=== PATIENT | male | born 1960 | race Caucasian/White ===

== ENCOUNTER 2017-04-07 08:55 | Inpatient (IN) | payer OTHER ==
[2017-04-07] VITALS (11 sets, daily range): BP systolic 105–128; BP diastolic 63–77; PULSE 58–84; RESP 16–18; O2SAT 95–99
[~2017-04-07] VITALS: Ht 180.3 cm; Wt 100.3 kg
[~2017-04-07 08:55] MED LIST: Lactated Ringer's 1,000 ML IV ONE
[2017-04-07] MEDS ORDERED: Lactated Ringer's 500 ML IV PRN (10:02)
[2017-04-07] MEDS ORDERED: Lactated Ringer's 1,000 ML IV SCH (10:02)
[2017-04-07] MEDS ORDERED: MetoCLOpramide 5 mg/mL 2 mL Inj IVPUSH PRN (10:05)
[2017-04-07] MEDS ORDERED: Atropine 0.4 mg/mL Inj IVPUSH PRN (10:05)
--- NOTE | 2017-04-07 10:06 | PCM.HPANE ---
Patient Data Date of Service: Apr 07, 2017 Surgeon Admitting Provider: Attending Provider:Samuel Rosenberg MD Primary Care Physician:Donta Santiago DO Other Provider:Viet Valle Anesthesia Reason for Visit Colon Cancer Screening Ht/WT & BMI Height (Feet): 5 Height (Inches): 11 Weight (Kilograms): 113 Body Mass Index 34.00 Allergies Coded Allergies: No Known Allergies (Verified Allergy, Unknown, 04/06/17) Past Anesthesia History Anesthesia History: Denies:: Anesthesia Reactions, Fam Malignant Hypertherm Diabetes History Hx Diabetes?: No MRSA MRSA: No Medications Hypertension Medication: No Home Meds Incl Beta Mayela: No History History of ENT Problems?: No HEENT History: Denies:: Abnormal Airway Difficult Intubation Denture Type: None Teeth Condition: Broken Teeth Hx of Heart Problems?: No Cardiovascular History: Denies:: Chest Pain Hypertension Valvular Heart Disease Hx of Respiratory Problem?: Yes Respiratory History: Positive for:: COPD Other Resp Pertinent History: SMOKE DAILY Hx Neurologic Problems?: No Neurological History: Denies:: CVA Hx of GI Problems?: Yes Gastrointestinal History: Positive for:: Gastroesphageal Reflux Heartburn Hx of Problems?: No HX of Peritoneal Dialysis: No Hx Musculoskeletal Problems?: No Hx of Psycho/Social Problems?: Yes Psycho Social History: Positive for:: Anxiety Hx Depression Hx Surgeries?: Yes (APPY) Other History/Comment Alcohol use Hx Any Other Health Problems?: No Hx Alcohol Use: Yes (DAILY )Hx Substance Use: Yes Smoking Status: Current Every Day Smoker Stop/Bang Treated for Sleep Apnea?: No Do You Have a CPAP Machine?: No S-Snoring: Do You Snore Loudly: Yes T-Tired: feel tired, fatigued: No O-Obsered: Observed not breath: No P-Blood Pressure: treated: No B- Body Mass Index > 35 kg/m2: No A- Age over 50: Yes N- Neck Large Circumference: No G- Gender Male: Yes OSCAR Total Score: 3 Risk Assessment Category Category 1A: Patient has history of documented sleep apnea, and HAS NOT received any narcotic, sedative or anesthesia administration during this stay. Category 1B: Patient has history of documented sleep apnea, and HAS received any narcotic , sedative or anesthesia administration during this stay Category 2: Patient has SUSPECTED Obstructive Sleep Apnea, and HAS received any narcotic , sedative or anesthesia administration during this stay. Category 3: Patient has SUSPECTED Obstructive Sleep Apnea and HAS NOT received narcotic, sedative or anesthesia administration during this stay. Category 4: Outpatient in Procedural Areas with known sleep apnea or who screen positive for High Risk via the STOP/BANG questionnaire. Exam Exam Vital Signs Vital Signs Date Time Temp Pulse Resp B/P Pulse Ox O2 Delivery O2 Flow Rate FiO2 04/07/17 09:55 36.2 60 17 115/75 97 Room Air General Appearance: Alert, Oriented X3, Cooperative HEENT/AIRWAY: MP 3, Neck Movement (Full), Mouth Opening (Wide) Lungs: Clear to Auscultation, Normal Air Movement Heart: Regular Rate/Rhythm, Normal S1, Normal S2 Plan Impression Patient chart reviewed, patient interviewed and anesthestic plan with risks, benefits, and alternatives discussed, and informed consent obtained. NPO per Anesth. Guidelines: Yes ASA Physical Status: ASA2 Mod Systemic Disease Anesthetic Plan: MAC Bene/Risks/Altern/Consents: Yes HP Complete Prior to Induction: Yes Sid Haley MD Apr 07, 2017 10:06
[2017-04-07] MEDS ORDERED: Piperacillin-Tazo 3.375 Gm Inj 3.375 GM in Dextrose 5% Minibag Plus 50 ML IV STA (10:35)
[2017-04-07] MEDS ORDERED: fentaNYL-PF 50 mCg/mL 2 mL Inj ONE (10:36)
[2017-04-07] MEDS: fentaNYL-PF 50 mCg/mL 2 mL Inj IVPUSH PRN ×2 (10:42→10:54)
--- NOTE | 2017-04-07 11:39 | PCM.ANEP1 ---
Post Anesthesia PACU Phase 1 Assessment Vital Signs Vital Signs Date Time Temp Pulse Resp B/P Pulse Ox O2 Delivery O2 Flow Rate FiO2 04/07/17 11:24 63 16 106/66 96 Room Air 04/07/17 11:14 68 16 106/66 99 Room Air 04/07/17 11:04 72 17 105/68 98 Room Air 04/07/17 10:53 66 16 118/70 99 Room Air 04/07/17 10:36 64 16 128/77 96 Room Air 04/07/17 09:55 36.2 60 17 115/75 97 Room Air Anesthetic Administered: GA Level of Alertness: Awake, talking OBANDO's with Equal Strength: Yes Pain: Yes (concern for perforation) Nausea or Vomiting: No CV Function & Hydration Stable: Yes Airway Device: Oxygen Delivery: Nasal Cannula Lungs: Normal Air Movement PACU Phase 2 Assessment Complications: Yes (perforation seen on CT scan) Follow up Care: N/A Patient Instructions Provided: N/A Sid Haley MD Apr 07, 2017 11:39
[2017-04-07] MEDS ORDERED: Lactated Ringer's 1,000 ML IV ONE (11:41)
[2017-04-07] MEDS ORDERED: Propofol 10,000 mCg/mL 20 mL Inj ONE (12:12)
--- NOTE | 2017-04-07 12:14 | ENDO ---
[address] [address] ENDOSCOPY PROCEDURE PATIENT: RUFUS HINDS : 1960 MR#: [id number] ADMIT: 04/07/2017 JOB ID: [id number] DATE: 04/07/2017 PROCEDURE: Colonoscopy. INDICATION: Colon cancer screening. ANESTHESIA: The patient's ASA classification, Mallampati score, and medications as per anesthesia note. INSTRUMENT USED: PCF H 190 DL. PREPARATION QUALITY: Good. PROCEDURE DETAILS: After informed consent was obtained, the patient was brought into the GI suite, where he was placed on oxygen via nasal cannula and monitored with continuous pulse oximeter, telemetry, and blood pressure monitoring. A time-out was performed, then he was placed in the left lateral decubitus position and medications were administered for sedation. Digital rectal exam was performed which was unremarkable. The colonoscope was then inserted into the rectum and advanced under direct visualization to the cecum. Once the cecum was reached, the colonoscope was then withdrawn back. In the ascending colon, just distal to the ileocecal valve, was an approximately 8-9 mm flat polyp. The polyp was lifted using normal saline injection. Following that, the polyp was removed with a hot snare. Following removal with a hot snare there appeared to be a mucosal defect suggestive of a perforation. Three hemoclips were placed to approximate the mucosal defect, which measured approximately 4-5 mm. Air was suctioned. The polyp was retrieved. The colonoscope was quickly withdrawn. IMPRESSION: 1. Ascending colon polyp. Perforation following polyp removal. Three hemoclips were placed to approximate the perforation. Will plan for a STAT CT scan of the abdomen and pelvis. 2. STAT IV antibiotics. 3. STAT surgical consultation. 4. N.p.o. COMPLICATIONS: As mentioned above. ESTIMATED BLOOD LOSS: Zero.
--- NOTE | 2017-04-07 12:25 | NUR ---
Post op Pt to unit at 1155 from Endo able to slide self off gurney into bed. Pt has 2L NC, A&O x 3, OBANDO, VSS. Pt having pain /. Oriented to room and call light, bed in low, care continues.
--- NOTE | 2017-04-07 12:30 | DRSVH ---
PROCEDURE: CT ABDOMEN AND PELVIS WITHOUT CONTRAST ([id number]) INDICATIONS: Possible perforation TECHNIQUE: Noncontrast 5 mm thick sections acquired from the diaphragms to the symphysis. 5 mm coronal and sagi ttal reformats were then performed. For radiation dose reduction, the following was used: automated exposure control, adjustment of mA and/or kV according to patient size. COMPARISON: Jose Zarate, MR, MR LUMBAR SPINE WO CON, 02/18/2017, 9:08. FINDINGS: Image quality: Excellent. ABDOMEN: Lung bases: Lung bases are clear. Heart size is normal. Solid organs: There is a 1.2 cm indeterminate hepatic hypodensity. Liver and spleen are normal in si ze. Gallbladder is normal. Pancreas is normal in contours. No adrenal nodules. Kidneys are normal in size, without hydronephrosis or nephrolithiasis. Peritoneum and bowel: There is a large amount of free peritoneal air consistent with viscus perforat ion. There is a small amount of air/fluid adjacent to the hepatic flexure, most likely the site of pe rforation. There are 2 metallic clips are noted along the lateral wall of the ascending colon. Unenha nced bowel loops demonstrate normal wall thickness and caliber. No free fluid. Nodes and vessels: No retroperitoneal or mesenteric adenopathy by size criteria. Aorta and inferior vena cava are normal in caliber. Miscellaneous: No ventral hernias. PELVIS: Genitourinary: Bladder wall thickness is normal. Miscellaneous: No inguinal hernias or adenopathy. Bones: No suspicious bony lesions. No vertebral body compression fractures. IMPRESSION: 1. A large amount of free peritoneal air consistent with viscus perforation. The site of perforation is in the area of the hepatic flexure or asceding colon. 2. Two surgical clips along the lateral wall of the ascending colon. 3. A 1.2 cm indeterminate hepatic hypodensity, probably a cyst. The result was discussed with Dr. Chet zuniga to dictation. Dictated by: Harriet Brunson M.D. on 04/07/2017 at 12:20 Transcribed by: JITENDRA on 04/07/2017 at 12:31 Approved by: Harriet Brunson M.D. on 04/07/2017 at 17:17
--- NOTE | 2017-04-07 13:36 | PCM.HPMED ---
Subjective Date of Service Apr 07, 2017 Primary Provider: Admitting Physician: Primary Care Physician: Donta Santiago DO Attending Physician: Samuel Rosenberg MD Chief Complaint: perforated colon from colonoscopy History of Present Illness: 56-year-old male with no significant past medical history, chronic etoh abuse, no hx of withdrawal, Fhx of colon cancer presented to endoscopy clinic for elective colonoscopy for screening by . During the procedure, bowel was perforated following polyp removal. Patient was started on zosyn, IVF, kept in NPO. Surgical consult on board. CT abd showed A large amount of free peritoneal air consistent with viscus perforation. The site of perforation is in the area of the hepatic flexure of colon where there is a small air/fluid collection. upon interview, pt c/o coldness, chills, abdominal pain 5/10, diffusely, denied n/v. otherwise pt denied recent F,c, cough, sputum, chest pain, sputum, travel, sick contacts, complaints. functional and active Review of Systems: Pertinent positives as noted in history of present illness. All other systems were reviewed and are negative Allergies Coded Allergies: No Known Allergies (Verified Allergy, Unknown, 04/06/17) Home Medications None PMH Surgical History Perforated appendicitis Family History Mother and aunt had colon cancer Social History Hx Alcohol Use: Yes (DAILY ) Hx Substance Use: Yes Smoking Status: Current Every Day Smoker Additional Information Lives with and daughter Exam Vital Signs Vital Sign - Last Date Time Temp Pulse Resp B/P Pulse Ox O2 Delivery O2 Flow Rate FiO2 04/07/17 11:39 Nasal Cannula 04/07/17 11:34 62 16 107/71 96 04/07/17 09:55 36.2 Exam NAD, comfortably laying down on the bed no JVD, MMM, no LAD RRR, nl s1, s2 no mrg CTAB, no w,c S, moderately distended, diffuse tenderness throughout, hypoactive bowel sounds , no rTD, no guarding warm, no edema, pulses 2/2 Lab and Diagnostics X-Rays, CTs and MRIs Caution: Report not yet finalized and possibly incomplete! PROCEDURE: CT ABDOMEN AND PELVIS WITHOUT CONTRAST ([id number]) INDICATIONS: Possible perforation TECHNIQUE: Noncontrast 5 mm thick sections acquired from the diaphragms to the symphysis. 5 mm coronal and sagittal reformats were then performed. For radiation dose reduction, the following was used: automated exposure control, adjustment of mA and/or kV according to patient size. COMPARISON: MR Faustino, MR LUMBAR SPINE WO CON, 02/18/2017, 9:08. FINDINGS: Image quality: Excellent. ABDOMEN: Lung bases: Lung bases are clear. Heart size is normal. Solid organs: There is a 1.2 cm indeterminate hepatic hypodensity. Liver and spleen are normal in size. Gallbladder is normal. Pancreas is normal in contours. No adrenal nodules. Kidneys are normal in size, without hydronephrosis or nephrolithiasis. Peritoneum and bowel: There is a large amount of free peritoneal air consistent with viscus perforation. There is a small amount of air/fluid adjacent to the hepatic flexure, most likely the site of perforation. There are 2 metallic clips are noted along the lateral wall of the ascending colon. Unenhanced bowel loops demonstrate normal wall thickness and caliber. No free fluid. Nodes and vessels: No retroperitoneal or mesenteric adenopathy by size criteria. Aorta and inferior vena cava are normal in caliber. Miscellaneous: No ventral hernias. PELVIS: Genitourinary: Bladder wall thickness is normal. Miscellaneous: No inguinal hernias or adenopathy. Bones: No suspicious bony lesions. No vertebral body compression fractures. IMPRESSION: 1. A large amount of free peritoneal air consistent with viscus perforation. The site of perforation is in the area of the hepatic flexure of colon where there is a small air/fluid collection. 2. Two surgical clips along the lateral wall of the ascending colon. The result was discussed with Dr. Chet zuniga to dictation. Dictated by: Harriet Brunson M.D. on 04/07/2017 at 12:20 Transcribed by: JITENDRA on 04/07/2017 at 12:31 Assessment & Plan Acute, active perforated colon, POA, during colonoscopy, CT abd showed large free air. HD stable, -appreciate , recommendation, keep NPO for now, -continue IVF NS 100cc/hr -pain control for dilaudid prn, -zofran prn for n/v -continue zosyn empirically for peritonitis, trend labs, fever curve chronic, stable, etoh abuse, potential for etoh WD, monitor for now dispo:Patient will be admitted with inpatient status with expectation of inpatient therapy for more than 2 midnights diet: Nothing by mouth dvt ppx: SCD Full code Time spent 65min Kermit Wilson MD Apr 07, 2017 12:06
[2017-04-07] MEDS: 0.9% Sodium Chloride 1,000 ML IV SCH (13:44)
[2017-04-07] MEDS: HYDROmorphone 1 mg/mL Inj IVPUSH PRN ×4 (13:44→22:40)
[2017-04-07 13:56] LABS: BASOPHILS % (AUTO) 0.1 % (0-3); EOSINOPHILS % (AUTO) 0.7 % (0-5); MONOCYTES % (AUTO) 5.4 % (4-12); Mean Corpuscular Hemoglobin 30.1 pg (27.0-35.0); Mean Corpuscular Volume 90.4 fL (81-100); Platelet Count 258 bil/L (150-400)
[2017-04-07] MEDS: Ondansetron 2 mg/mL 2 mL Inj IVPUSH PRN (14:05)
[2017-04-07 14:21] LABS: Magnesium 1.9 mg/dL (1.6-2.6); Phosphorus 3.8 mg/dL (2.5-4.9)
--- NOTE | 2017-04-07 16:20 | CONS ---
[address] [address] CONSULTATION REPORT PATIENT: RUFUS HINDS : 1960 MR#: [id number] ADMIT: 04/07/2017 JOB ID: [id number] DATE OF SERVICE: 04/07/2017 CHIEF COMPLAINT: Abdominal pain. HISTORY OF PRESENT ILLNESS: The patient is a 56-year-old man who underwent a screening colonoscopy today which was complicated by a colon perforation. Again, colonoscopy was being performed for screening purposes. Dr. Rosenberg encountered an 8-9 mm flat polyp in the ascending colon, which was removed by hot snare after lifting the polyp with saline injection, and immediately perforation was identified. Clips were placed to reapproximate the defect and the scope was quickly withdrawn after air was suctioned. A stat CT scan of the abdomen and pelvis was obtained which showed findings consistent with colon perforation, including a large amount of free intraperitoneal air and a small amount of free fluid adjacent to the hepatic flexure. There were two metallic clips located along the lateral wall of the ascending colon. At the time of interviewing the patient this afternoon, he was complaining of fairly severe ongoing abdominal pain. He has had nausea but no vomiting. PAST MEDICAL HISTORY: Alcohol abuse without history of withdrawal. PAST SURGICAL HISTORY: Appendicitis, status post laparoscopic appendectomy. MEDICATIONS: None. ALLERGIES: No known drug allergies. SOCIAL HISTORY: He drinks alcohol daily. He also admits to daily marijuana use for 40 years. He smokes cigarettes. FAMILY HISTORY: Both a mother and an aunt had colon cancer. REVIEW OF SYSTEMS: A 10-point review of systems is otherwise negative except as described in history of present illness. Specifically, he denies blood in the stool. PHYSICAL EXAMINATION: Body mass index 30.8, temperature 36.4, pulse 64, blood pressure 110/70, saturation 97% on 2 liters nasal cannula. General: He is resting in bed in no acute distress. Neck: Trachea is midline. No lymphadenopathy. Chest: Clear to auscultation bilaterally. Heart: Regular rate and rhythm. No murmurs. Abdomen: Fairly firm and distended. He is diffusely tender. There is no erythema of the abdominal wall. There is a well-healed scar at the umbilicus as well as in the left lower abdomen. There are no palpable masses. Extremities: No edema. Neuro: No deficits. Psychiatric: Affect is appropriate. LABORATORIES: White count is 14.4, hematocrit 44.2, platelets 258, creatinine 1.09, glucose 88, procalcitonin 0.05, albumin 4.2. ASSESSMENT AND PLAN: A 56-year-old man with alcohol and marijuana abuse, status post iatrogenic perforation of the ascending colon during colonoscopy with polypectomy. He does have free air and a fairly firm, tender abdomen at this time. For now, I recommend conservative management including nothing by mouth, IV fluids, broad-spectrum IV antibiotics. The patient understands that more than likely, he will not require surgical intervention, but we will tend to have a good idea within the 1st 24 hours. If he is going to fail conservative management or not. Specifically, we will be looking for tachycardia, fevers, worsening abdominal pain, rising leukocytosis. All his questions were answered.
[2017-04-07] MEDS: Piperacillin-Tazo 3.375 Gm Inj 3.375 GM in Dextrose 5% Minibag Plus 50 ML IV SCH (17:34)
[2017-04-08] VITALS (7 sets, daily range): BP systolic 95–105; BP diastolic 57–63; PULSE 63–81; RESP 18–20; O2SAT 92–94
[2017-04-08] MEDS: Piperacillin-Tazo 3.375 Gm Inj 3.375 GM in Dextrose 5% Minibag Plus 50 ML IV SCH ×3 (00:46→16:44)
[2017-04-08] MEDS: 0.9% Sodium Chloride 1,000 ML IV SCH ×3 (05:32→21:22)
[2017-04-08] MEDS: HYDROmorphone 1 mg/mL Inj IVPUSH PRN ×4 (05:41→18:38)
--- NOTE | 2017-04-08 05:56 | NUR ---
Pain Pt reports pain as being much better. Used IV pain management and patient was counseled on how much pain medication to use. Pt requested full 2mg IV Dilaudid dose to be able to sleep. Will pass on to day shift to wean pain medication down.
[2017-04-08 06:25] LABS: BASOPHILS % (AUTO) 0.1 % (0-3); EOSINOPHILS % (AUTO) 0.5 % (0-5); MONOCYTES % (AUTO) 8.5 % (4-12); Mean Corpuscular Hemoglobin 29.8 pg (27.0-35.0); Mean Corpuscular Volume 91.5 fL (81-100); NEUTROPHILS % (AUTO) 74.2 % (40-74); Platelet Count 248 bil/L (150-400)
[2017-04-08 06:44] LABS: Phosphorus 3.4 mg/dL (2.5-4.9)
--- NOTE | 2017-04-08 08:05 | PROG NOTE ---
[address] [address] PROGRESS NOTE PATIENT: RUFUS HINDS : 1960 MR#: [id number] ADMIT: 04/07/2017 JOB ID: [id number] DATE: 04/08/2017 SUBJECTIVE: The patient is seen in followup. He feels significantly better today. He still does have some mild nausea. He has not passed any flatus. His pain is much better controlled. OBJECTIVE: Temperature is 36.9, pulse 74, blood pressure 95/58, saturation 94% on 3 liters. General: He is resting in bed in no acute distress. Chest is clear. Heart: Regular rate and rhythm. No murmurs. Abdomen is much less distended. He is soft. He has mild tenderness to palpation. Bowel tones are present. LABORATORIES: White count is 11.6, hematocrit 39.6, platelets 248, creatinine 1.05, procalcitonin 0.49. ASSESSMENT AND PLAN: A 56-year-old man with iatrogenic right colon perforation during colonoscopy. I think he is improving with conservative management, but would continue for today and do not recommend discharge yet. I think giving him a clear liquid diet today in a limited fashion is fine. Would continue antibiotics and recheck labs tomorrow. It seems unlikely that he will require surgical intervention.
--- NOTE | 2017-04-08 09:47 | PCM.PNMED ---
Subjective Date of Service Apr 08, 2017 Subjective abdominal pain better still requiring IV narcotics no flatus or bowel movement started clears this AM per surgery , tolerating clears Exam Vital Signs Vital Sign - Last Date Time Temp Pulse Resp B/P Pulse Ox O2 Delivery O2 Flow Rate FiO2 04/08/17 05:33 74 04/08/17 05:08 36.9 20 95/58 94 Nasal Cannula 3.00 Intake and Output 04/07/17 04/07/17 04/08/17 Cumulative From/Thru 15:00 23:00 07:00 04/07/17 09:59 - 04/08/17 06:09 Intake Total 300 ml 0 ml 1175 ml 1475 ml Output Total 450 ml 450 ml 900 ml Balance 300 ml -450 ml 725 ml 575 ml Intake Oral 0 ml 0 ml 0 ml IV Total 300 ml 1175 ml 1475 ml Output Urine Total 450 ml 450 ml 900 ml # Bowel Movements 0 0 Exam Gen- no apparent distress HEENT- oropharynx clear RESP- clear to auscultation bilaterally CVS-RRR Abdomen- Tender in RUQ and RLQ, distended but soft, hypoactive bowel sounds EXT- no edema Lab and Diagnostics Result Diagram: 04/08/17 0520 04/08/17 0520 X-Rays, CTs and MRIs Caution: Report not yet finalized and possibly incomplete! PROCEDURE: CT ABDOMEN AND PELVIS WITHOUT CONTRAST ([id number]) INDICATIONS: Possible perforation TECHNIQUE: Noncontrast 5 mm thick sections acquired from the diaphragms to the symphysis. 5 mm coronal and sagittal reformats were then performed. For radiation dose reduction, the following was used: automated exposure control, adjustment of mA and/or kV according to patient size. COMPARISON: MR Faustino, MR LUMBAR SPINE WO CON, 02/18/2017, 9:08. FINDINGS: Image quality: Excellent. ABDOMEN: Lung bases: Lung bases are clear. Heart size is normal. Solid organs: There is a 1.2 cm indeterminate hepatic hypodensity. Liver and spleen are normal in size. Gallbladder is normal. Pancreas is normal in contours. No adrenal nodules. Kidneys are normal in size, without hydronephrosis or nephrolithiasis. Peritoneum and bowel: There is a large amount of free peritoneal air consistent with viscus perforation. There is a small amount of air/fluid adjacent to the hepatic flexure, most likely the site of perforation. There are 2 metallic clips are noted along the lateral wall of the ascending colon. Unenhanced bowel loops demonstrate normal wall thickness and caliber. No free fluid. Nodes and vessels: No retroperitoneal or mesenteric adenopathy by size criteria. Aorta and inferior vena cava are normal in caliber. Miscellaneous: No ventral hernias. PELVIS: Genitourinary: Bladder wall thickness is normal. Miscellaneous: No inguinal hernias or adenopathy. Bones: No suspicious bony lesions. No vertebral body compression fractures. IMPRESSION: 1. A large amount of free peritoneal air consistent with viscus perforation. The site of perforation is in the area of the hepatic flexure of colon where there is a small air/fluid collection. 2. Two surgical clips along the lateral wall of the ascending colon. The result was discussed with Dr. Chet zuniga to dictation. Dictated by: Harriet Brunson M.D. on 04/07/2017 at 12:20 Transcribed by: JITENDRA on 04/07/2017 at 12:31 Assessment & Plan Iatrogenic colon perforation -continue IV antibiotics -diet as per surgery -follow CBC -KUB today Dr Cristina will be covering the service over the weekend, I will return on Tuesday. VTE Mechanical Devices: Intermittant Pneumatic CD Samuel Rosenberg MD Apr 08, 2017 09:46
--- NOTE | 2017-04-08 11:24 | PATH ---
SURGICAL PATHOLOGY Attending Physician:Altagracia Rodriguez CASE STATUS: Signed Out PATIENT NAME: RUFUS HINDS PID: [id number] : 1960 DATE COLLECTED:04/07/2017 16:58 SPECIMEN: Colon, Polyp CLINICAL HISTORY: 1. ASCENDING COLON POLYP FINAL DIAGNOSIS: 1.ASCENDING COLON POLYP: SERRATED ADENOMA WITH PROMINENT SUBMUCOSAL EDEMA. ICD10 D12.2 GROSS DESCRIPTION: The specimen is received in one formalin filled container labeled with the patient's name, sublabeled "ascending polyp" and consists of a yellow-fields portion of tissue which measurers 1.7 x 1.2 x 1.0 CM. The specimen is sectioned into 4 pieces and entirely submitted in one cassette. 04/07/2017 [facility] MICRO DESCRIPTION: See diagnosis. ICD-9 CODES: CPT CODES: 1: 29708 Electronically Signed Out Pawan Ferrell MD [facility] [address], [place] [address] Technical component performed at [facility], [facility] [address], [place], [address]
--- NOTE | 2017-04-08 11:43 | DRSVH ---
PROCEDURE: X-RAY KUB ([id number]) INDICATIONS: colon perforation TECHNIQUE: One view of the abdomen acquired. COMPARISON: [facility], CT, CT ABD PELVIS WO CON, 04/07/2017, 10:24. FINDINGS: Surgical changes and devices: None. Bowel: Bowel gas pattern is normal. Soft tissues: No suspicious abdominal calcifications. Visualized solid organ contours appear normal in size. 3 metallic surgical clips projected over the right lower quadrant. Bones: No suspicious bony lesions. IMPRESSION: 1. Normal bowel gas pattern. Free intraperitoneal gas cannot be excluded by this examination as no u pright was performed nor a decubitus film. Dictated by: Rj SHARPE Interpreted: Jacek Arango MD on 04/08/2017 at 11:19 Approved by: Jacek Arango M.D. on 04/08/2017 at 11:41
--- NOTE | 2017-04-08 12:29 | PCM.PNMED ---
Subjective Date of Service Apr 08, 2017 Subjective pt remained stable, bowel soft, no n/v Exam Vital Signs Vital Sign - Last Date Time Temp Pulse Resp B/P Pulse Ox O2 Delivery O2 Flow Rate FiO2 04/08/17 12:17 36.7 70 18 100/63 94 Room Air 04/08/17 05:08 3.00 Intake and Output 04/07/17 04/07/17 04/08/17 Cumulative From/Thru 15:00 23:00 07:00 04/07/17 09:59 - 04/08/17 06:09 Intake Total 300 ml 0 ml 1175 ml 1475 ml Output Total 450 ml 450 ml 900 ml Balance 300 ml -450 ml 725 ml 575 ml Intake Oral 0 ml 0 ml 0 ml IV Total 300 ml 1175 ml 1475 ml Output Urine Total 450 ml 450 ml 900 ml # Bowel Movements 0 0 Exam NAD, comfortably laying down on the bed no JVD, MMM, no LAD RRR, nl s1, s2 no mrg CTAB, no w,c S, moderately distended, diffuse tenderness throughout, hypoactive bowel sounds , no rTD, no guarding warm, no edema, pulses 2/2 IVs and Medications Medications Reviewed: Medications were reviewed in detail Lab and Diagnostics Result Diagram: 04/08/1751904/08/17519 X-Rays, CTs and MRIs Caution: Report not yet finalized and possibly incomplete! PROCEDURE: CT ABDOMEN AND PELVIS WITHOUT CONTRAST (PNL-7104) INDICATIONS: Possible perforation TECHNIQUE: Noncontrast 5 mm thick sections acquired from the diaphragms to the symphysis. 5 mm coronal and sagittal reformats were then performed. For radiation dose reduction, the following was used: automated exposure control, adjustment of mA and/or kV according to patient size. COMPARISON: Jose Zarate, MR, MR LUMBAR SPINE WO CON, 02/18/2017, 9:08. FINDINGS: Image quality: Excellent. ABDOMEN: Lung bases: Lung bases are clear. Heart size is normal. Solid organs: There is a 1.2 cm indeterminate hepatic hypodensity. Liver and spleen are normal in size. Gallbladder is normal. Pancreas is normal in contours. No adrenal nodules. Kidneys are normal in size, without hydronephrosis or nephrolithiasis. Peritoneum and bowel: There is a large amount of free peritoneal air consistent with viscus perforation. There is a small amount of air/fluid adjacent to the hepatic flexure, most likely the site of perforation. There are 2 metallic clips are noted along the lateral wall of the ascending colon. Unenhanced bowel loops demonstrate normal wall thickness and caliber. No free fluid. Nodes and vessels: No retroperitoneal or mesenteric adenopathy by size criteria. Aorta and inferior vena cava are normal in caliber. Miscellaneous: No ventral hernias. PELVIS: Genitourinary: Bladder wall thickness is normal. Miscellaneous: No inguinal hernias or adenopathy. Bones: No suspicious bony lesions. No vertebral body compression fractures. IMPRESSION: 1. A large amount of free peritoneal air consistent with viscus perforation. The site of perforation is in the area of the hepatic flexure of colon where there is a small air/fluid collection. 2. Two surgical clips along the lateral wall of the ascending colon. The result was discussed with Dr. Chet zuniga to dictation. Dictated by: Harriet Brunson M.D. on 04/07/2017 at 12:20 Transcribed by: JITENDRA on 04/07/2017 at 12:31 Assessment & Plan Acute, active perforated colon, POA, iatrogenic during colonoscopy, CT abd showed large free air. HD stable, -pt clinically stable with conservative tx, no s/s of peritonitis -appreciate , recommendation, keep NPO for now, -continue IVF NS 100cc/hr -pain control for dilaudid prn, -zofran prn for n/v -continue zosyn empirically for peritonitis, trend labs, fever curve chronic, stable, etoh abuse, potential for etoh WD, no s/s of WD yet, CIWA protocl ordered, dispo:likely through the weekends, close observation diet: Nothing by mouth dvt ppx: SCD Full code VTE Mechanical Devices: Intermittant Pneumatic CD Time spent 35min Kermit Wilson MD Apr 08, 2017 12:25
--- NOTE | 2017-04-08 17:43 | NUR ---
Activity Pt having intermittent gassy pain during shift, well controlled with IV medications. Able to get up to BR now and independently walking in room. Bowel sounds normal today, but did have increasing abdominal firmerness over shift, still has not passed gas. Pt eating clear diet and is going slow since he had mild nausea after eating. Pt states he drink 4-6 beers a night, CIWA protocol in place, scored 0-3 during shift. Bed in low, call light in reach, care continues. Addendum: 04/08/17 at 1924 by RADHA MARMOLEJO RN Went into room at 1800 and pt was using chewing tobacco. Advised that this was against our policy and he stated that it was all gone and he threw it away. production intern RN aware.
[2017-04-09] VITALS (9 sets, daily range): BP systolic 95–111; BP diastolic 55–74; PULSE 59–73; RESP 16–18; O2SAT 91–96
[2017-04-09] MEDS: HYDROmorphone 1 mg/mL Inj IVPUSH PRN ×5 (00:51→22:42)
[2017-04-09] MEDS: Piperacillin-Tazo 3.375 Gm Inj 3.375 GM in Dextrose 5% Minibag Plus 50 ML IV SCH ×3 (00:52→16:32)
[2017-04-09] MEDS: 0.9% Sodium Chloride 1,000 ML IV SCH ×2 (05:40→12:21)
--- NOTE | 2017-04-09 06:29 | NUR ---
Rest/Pain/Respiratory Pt was able to sleep through most of the shift. Pt c/o pain prior to the pain reaching level he could not handle and was given pain relief with 2mg Dilaudid IVP. Pt was on a continuous pulse ox at HS and began to desat into the high 80s so pt was put on 2L O2 NC and the pt's SpO2 >92% with this amount of supplemental O2.
[2017-04-09 06:31] LABS: BASOPHILS % (AUTO) 0.2 % (0-3); EOSINOPHILS % (AUTO) 1.3 % (0-5); MONOCYTES % (AUTO) 8.4 % (4-12); Mean Corpuscular Hemoglobin 29.8 pg (27.0-35.0); Mean Corpuscular Volume 91.4 fL (81-100); Platelet Count 233 bil/L (150-400)
[2017-04-09 07:19] LABS: Magnesium 1.9 mg/dL (1.6-2.6); Phosphorus 2.8 mg/dL (2.5-4.9)
--- NOTE | 2017-04-09 08:12 | PCM.PNSURG ---
Subjective Date of Service: Apr 09, 2017 Date of Service: Apr 09, 2017 Visit Information: Subjective: no acute events overnight. pt passing flatus. pt reports still mild pain in rt side of abdomen but improved since admission. Pt on clears. Postop General: No Complaints Objective Vital Sign- Last 8 Hours Date Time Temp Pulse Resp B/P Pulse Ox O2 Delivery O2 Flow Rate FiO2 04/09/17 05:59 65 04/09/17 04:37 36.6 68 18 95/55 94 Room Air 04/09/17 00:13 36.7 72 18 111/69 94 Room Air Intake and Output- Last 8 Hour 04/09/17 Cumulative From/Thru 07:00 04/07/17 09:59 - 04/09/17 06:45 Intake Total 200 ml 3566 ml Output Total 450 ml 2250 ml Balance -250 ml 1316 ml Intake Oral 200 ml 1050 ml IV Total 2516 ml Output Urine Total 450 ml 2250 ml # Bowel Movements 0 0 General: Oriented X3 Neck: Supple Lungs: Clear to Auscultation Heart: Exam Unremarkable Abdomen: Benign, Soft, Appropriately tender, Distended, Normoactive bowel tones Result Diagram: 04/09/17 0536 04/09/17 0536 Assessment & Plan Impression 56-year-old man wtih hx appy and daily marijuana use admitted after colonoscopy performed for colorectal cancer screening complicated by a colon perforation s/ p 2 clips placed at ascending colon perf site. s/p CT scan of the abdomen and pelvis no contrast 04/07/17 was obtained which showed findings consistent with colon perforation, large amount free intraperitoneal air near hepatic flexure site. 04/09/17- Pt passing flatus but dry can tender in Rt side abdomen on physical exam. Pt abdomen remains soft yet mildly distended. wbc 9.6 this am. recs: 1) Case discussed with and agree with Dr. Jim from Gen surgery this am. 2) serial abdominal exams 3) cont clears liquid diet for now will cont to follow . Problems: Chapincito Cristina MD Apr 09, 2017 08:12
[2017-04-09] MEDS: Ondansetron 2 mg/mL 2 mL Inj IVPUSH PRN ×2 (09:40→16:47)
--- NOTE | 2017-04-09 11:39 | PROG NOTE ---
[address] [address] PROGRESS NOTE PATIENT: RUFUS HINDS : 1960 MR#: [id number] ADMIT: 04/07/2017 JOB ID: [id number] DATE: 04/09/2017 SUBJECTIVE: This is a 56-year-old man who had in iatrogenic perforation of the right colon two days ago with free air seen on CT scan. His white blood cell count has decreased from 11.6 to 9.6. He has been tolerating a clear liquid diet. He still has pain which he rates as 5/5 on examination. Oral intake was 850 mL. Urine output was 1350 mL. He is on Zosyn. Vitals are normal. Comprehensive metabolic panel is essentially within normal limits. OBJECTIVE: Vital signs are within normal limits. General: Awake and alert, no acute distress. Abdomen: Soft, mildly tender, distended, no rebound or guarding. ASSESSMENT: A 56-year-old man status post iatrogenic perforation of the right colon two days ago. He had a fair amount of free air on his CT scan. 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 He is tolerating clear liquid diet. RECOMMENDATIONS: I recommend continued antibiotics, non advancement of diet, pain control and observation. Although he would like to progress his care and go home, the amount of free air on his CT scan and degree of distention and tenderness leads me to recommend very careful observation as it is possible that his overall clinical status could still worsen at this time.
--- NOTE | 2017-04-09 13:27 | NUR ---
Social Work: Screening D: EMR reviewed. Pt is a 56 y/o male admitted for colon cancer screening per H&P. Pt's insurance is [employer] and PCP is Donta Santiago DO. Pt's NOK is listed as spouse, John Lagos ([phone]). Pt lives at home in [place] with his spouse where he remains independent. Per MD in AM multi-disciplinary rounds, pt is likely to discharge tomorrow. Pt to transport home via POV when medically stable. Per GARY NAIK does not anticipate any discharge needs at this time but will continue to follow if needs arise. A: Pt who is independent at baseline P: Per MD in AM multi-disciplinary rounds, pt is likely to discharge tomorrow. Pt to transport home via POV when medically stable. Per GARY NAIK does not anticipate any discharge needs at this time but will continue to follow if needs arise. LARRY Harper
--- NOTE | 2017-04-09 13:45 | PCM.PNMED ---
Subjective Date of Service Apr 09, 2017 Subjective He is seen today to follow up the colon perforation and abdominal free air. Exam Vital Signs Vital Sign - Last Date Time Temp Pulse Resp B/P Pulse Ox O2 Delivery O2 Flow Rate FiO2 04/09/17 09:34 37.0 66 16 109/74 95 Room Air 04/08/17 05:08 3.00 Intake and Output 04/08/17 04/08/17 04/09/17 Cumulative From/Thru 15:00 23:00 07:00 04/07/17 09:59 - 04/09/17 06:45 Intake Total 1891 ml 200 ml 3566 ml Output Total 900 ml 450 ml 2250 ml Balance 991 ml -250 ml 1316 ml Intake Oral 850 ml 200 ml 1050 ml IV Total 1041 ml 2516 ml Output Urine Total 900 ml 450 ml 2250 ml # Bowel Movements 0 0 Exam Alert and oriented. No apparent distress. He tells me that he was told by the surgeon to "not to eat nothing". Heart is regular rate and rhythm without murmur Lungs are clear to auscultation bilaterally Abdomen is soft, nontender, no organomegaly. Extremities have no ankle edema. IVs and Medications Medications Reviewed: Medications were reviewed in detail Lab and Diagnostics Result Diagram: 04/09/1753504/09/17535 X-Rays, CTs and MRIs Caution: Report not yet finalized and possibly incomplete! PROCEDURE: CT ABDOMEN AND PELVIS WITHOUT CONTRAST ([id number]) INDICATIONS: Possible perforation TECHNIQUE: Noncontrast 5 mm thick sections acquired from the diaphragms to the symphysis. 5 mm coronal and sagittal reformats were then performed. For radiation dose reduction, the following was used: automated exposure control, adjustment of mA and/or kV according to patient size. COMPARISON: Jose Zarate, , MR LUMBAR SPINE WO CON, 02/18/2017, 9:08. FINDINGS: Image quality: Excellent. ABDOMEN: Lung bases: Lung bases are clear. Heart size is normal. Solid organs: There is a 1.2 cm indeterminate hepatic hypodensity. Liver and spleen are normal in size. Gallbladder is normal. Pancreas is normal in contours. No adrenal nodules. Kidneys are normal in size, without hydronephrosis or nephrolithiasis. Peritoneum and bowel: There is a large amount of free peritoneal air consistent with viscus perforation. There is a small amount of air/fluid adjacent to the hepatic flexure, most likely the site of perforation. There are 2 metallic clips are noted along the lateral wall of the ascending colon. Unenhanced bowel loops demonstrate normal wall thickness and caliber. No free fluid. Nodes and vessels: No retroperitoneal or mesenteric adenopathy by size criteria. Aorta and inferior vena cava are normal in caliber. Miscellaneous: No ventral hernias. PELVIS: Genitourinary: Bladder wall thickness is normal. Miscellaneous: No inguinal hernias or adenopathy. Bones: No suspicious bony lesions. No vertebral body compression fractures. IMPRESSION: 1. A large amount of free peritoneal air consistent with viscus perforation. The site of perforation is in the area of the hepatic flexure of colon where there is a small air/fluid collection. 2. Two surgical clips along the lateral wall of the ascending colon. The result was discussed with Dr. Chet zuniga to dictation. Dictated by: Harriet Brunson M.D. on 04/07/2017 at 12:20 Transcribed by: JITENDRA on 04/07/2017 at 12:31 Assessment & Plan Acute, active perforated colon, POA, iatrogenic during colonoscopy, CT abd showed large free air. HD stable, -pt clinically stable with conservative tx, no s/s of peritonitis -appreciate Dr. Jim, recommendation, keep NPO for now, -continue IVF NS 100cc/hr -pain control for dilaudid prn, -zofran prn for n/v -continue zosyn empirically for peritonitis, trend labs, fever curve chronic, stable, etoh abuse, potential for etoh WD, no s/s of WD yet, CIWA protocl ordered, dispo:likely home tomorrow, close observation diet: Nothing by mouth dvt ppx: SCD Full code VTE Mechanical Devices: Intermittant Pneumatic CD Yuan Allison MD Apr 09, 2017 10:02
--- NOTE | 2017-04-09 14:51 | NUR ---
Pain/bathing Pain states his pain is worse with activity. Asking for Dilaudid 2 mg every 4 hours. White board used to remind pt of pain medication times to participate with care. Pt states pain is being managed with every four hours of medication. 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 in room pt preferred to assist with bathing. Care continues.
[2017-04-10] MEDS: 0.9% Sodium Chloride 1,000 ML IV SCH ×2 (00:43→10:43)
[2017-04-10] MEDS: Piperacillin-Tazo 3.375 Gm Inj 3.375 GM in Dextrose 5% Minibag Plus 50 ML IV SCH ×3 (00:44→16:53)
[2017-04-10 01:07] VITALS: BP 111/69; PULSE 61; RESP 18; O2SAT 92
[2017-04-10] MEDS: HYDROmorphone 1 mg/mL Inj IVPUSH PRN ×5 (04:23→21:24)
--- NOTE | 2017-04-10 04:54 | NUR ---
PAIN/GI; requesting dilaudid for abd pain q 4 to 5hrs. with relief. Reglan given x1 for nausea with relief. Loose med color bm this a.m.
[2017-04-10 06:08] VITALS: BP 104/63; PULSE 65; RESP 16; O2SAT 90
[2017-04-10 07:31] LABS: Mean Corpuscular Volume 91.4 fL (81-100)
[2017-04-10 08:27] VITALS: PULSE 77
--- NOTE | 2017-04-10 08:45 | PCM.PNSURG ---
Subjective Date of Service: Apr 10, 2017 Date of Service: Apr 10, 2017 Subjective: no acute events overnight. abdominal pain improved from yesterday. wbc 8.3 this am. pt tolerated full liquid diet today. ok to advance to soft low residue diet. Pt reports 3 bm overnight but felt like "squirts" Postop General: No Complaints Objective Vital Sign- Last 8 Hours Date Time Temp Pulse Resp B/P Pulse Ox O2 Delivery O2 Flow Rate FiO2 04/10/17 08:27 77 04/10/17 06:08 36.7 65 16 104/63 90 Room Air 04/10/17 01:07 37.0 61 18 111/69 92 Room Air Intake and Output- Last 8 Hour 04/10/17 Cumulative From/Thru 07:00 04/07/17 09:59 - 04/10/17 06:56 Intake Total 1802 ml 7199 ml Output Total 1000 ml 3250 ml Balance 802 ml 3949 ml Intake Oral 770 ml 2700 ml IV Total 1032 ml 4499 ml Output Urine Total 1000 ml 3250 ml # Voids 2 7 # Bowel Movements 1 1 General: Oriented X3 Neck: Supple Lungs: Clear to Auscultation Heart: Exam Unremarkable Abdomen: Benign, Soft, Appropriately tender (improved from yesterday), Distended (mild ), Normoactive bowel tones Result Diagram: 04/10/17 0720 04/09/17 0536 Assessment & Plan Impression 56-year-old man wtih hx appy and daily marijuana use admitted after colonoscopy performed for colorectal cancer screening complicated by a colon perforation s/ p 2 clips placed at ascending colon perf site. s/p CT scan of the abdomen and pelvis no contrast 04/07/17 was obtained which showed findings consistent with colon perforation, large amount free intraperitoneal air near hepatic flexure site. 04/09/17- Pt passing flatus but yeast distiller in Rt side abdomen on physical exam. Pt abdomen remains soft yet mildly distended. wbc 9.6 this am. 04/10/17-abdominal pain improved from yesterday. wbc 8.3 this am. pt tolerated full liquid diet today. ok to advance to soft low residue diet. Pt reports 3 bm overnight but felt like "squirts". No f/c. clinically improved from yesterday recs: 1) ok to advance to soft low residue diet 2) serial abdominal exams 3) Recs per gen surgery Dr. Eulogio Rosenberg returns tomorrow to follow pt. Problems: Chapinc[place] Cristina MD Apr 10, 2017 08:45
--- NOTE | 2017-04-10 09:01 | PROG NOTE ---
[address] [address] PROGRESS NOTE PATIENT: RUFUS HINDS : 1960 MR#: [id number] ADMIT: 04/07/2017 JOB ID: [id number] DATE: 04/10/2017 CHIEF COMPLAINT: A 56-year-old man status post iatrogenic perforation of the colon during colonoscopy three days ago. SUBJECTIVE: The patient is stable compared to yesterday. White blood cell count is 8.3, just slightly lower than yesterday when it was 9.6. He has been on a mostly clear liquid diet and tolerated greater than 1 L yesterday and 770 mL since midnight. One bowel movement overnight, and he reports that he is passing gas. Still complains of mild abdominal tenderness. OBJECTIVE: Vital signs are within normal limits with exception of saturations of 90% on room air. He also had one heart rate of 59 yesterday in the afternoon. General: Awake, alert, no acute distress. Abdomen soft, nondistended, mild tenderness in the pelvis to palpation, no rebound or guarding. ASSESSMENT: A 56-year-old man status post iatrogenic colon perforation three days ago during colonoscopy with overall clinical improvement and definite clinical stability since yesterday. RECOMMENDATIONS: Okay to advance diet as tolerated. At this point he will be monitored closely. 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
[2017-04-10 11:04] VITALS: BP 108/66; PULSE 65; RESP 18; O2SAT 92
--- NOTE | 2017-04-10 11:57 | PCM.PNMED ---
Subjective Date of Service Apr 10, 2017 Subjective Seen today to follow up the colonic perforation. The hgb is stable at 12.6. He is beginning to worry about the copays he will have to pay for this extended hospital stay, due to his colonoscopy complication. I have suggested he formulate letters to his insurance company and to the hospital, with his requests for relief. Surgery has advanced his diet today. Exam Vital Signs Vital Sign - Last Date Time Temp Pulse Resp B/P Pulse Ox O2 Delivery O2 Flow Rate FiO2 04/10/17 08:27 77 04/10/17 06:08 36.7 16 104/63 90 Room Air 04/08/17 05:08 3.00 Intake and Output 04/09/17 04/09/17 04/10/17 Cumulative From/Thru 15:00 23:00 07:00 04/07/17 09:59 - 04/10/17 06:56 Intake Total 1831 ml 1802 ml 7199 ml Output Total 1000 ml 3250 ml Balance 1831 ml 802 ml 3949 ml Intake Oral 880 ml 770 ml 2700 ml IV Total 951 ml 1032 ml 4499 ml Output Urine Total 1000 ml 3250 ml # Voids 5 2 7 # Bowel Movements 1 1 Exam Alert and oriented X 3 NAD Heart: RRR without murmer Lungs: CTAB Abdomen: soft, not tender, no masses, bowel sounds are normal. Ext: No ankle edema. IVs and Medications Medications Reviewed: Medications were reviewed in detail Lab and Diagnostics Result Diagram: 04/10/17 0720 04/09/17 0536 X-Rays, CTs and MRIs Caution: Report not yet finalized and possibly incomplete! PROCEDURE: CT ABDOMEN AND PELVIS WITHOUT CONTRAST (PNL-7104) INDICATIONS: Possible perforation TECHNIQUE: Noncontrast 5 mm thick sections acquired from the diaphragms to the symphysis. 5 mm coronal and sagittal reformats were then performed. For radiation dose reduction, the following was used: automated exposure control, adjustment of mA and/or kV according to patient size. COMPARISON: MR Faustino, MR LUMBAR SPINE WO CON, 02/18/2017, 9:08. FINDINGS: Image quality: Excellent. ABDOMEN: Lung bases: Lung bases are clear. Heart size is normal. Solid organs: There is a 1.2 cm indeterminate hepatic hypodensity. Liver and spleen are normal in size. Gallbladder is normal. Pancreas is normal in contours. No adrenal nodules. Kidneys are normal in size, without hydronephrosis or nephrolithiasis. Peritoneum and bowel: There is a large amount of free peritoneal air consistent with viscus perforation. There is a small amount of air/fluid adjacent to the hepatic flexure, most likely the site of perforation. There are 2 metallic clips are noted along the lateral wall of the ascending colon. Unenhanced bowel loops demonstrate normal wall thickness and caliber. No free fluid. Nodes and vessels: No retroperitoneal or mesenteric adenopathy by size criteria. Aorta and inferior vena cava are normal in caliber. Miscellaneous: No ventral hernias. PELVIS: Genitourinary: Bladder wall thickness is normal. Miscellaneous: No inguinal hernias or adenopathy. Bones: No suspicious bony lesions. No vertebral body compression fractures. IMPRESSION: 1. A large amount of free peritoneal air consistent with viscus perforation. The site of perforation is in the area of the hepatic flexure of colon where there is a small air/fluid collection. 2. Two surgical clips along the lateral wall of the ascending colon. The result was discussed with Dr. Chet zuniga to dictation. Dictated by: Harriet Brunson M.D. on 04/07/2017 at 12:20 Transcribed by: JITENDRA on 04/07/2017 at 12:31 Assessment & Plan Colon Perforation, POA, iatrogenic during colonoscopy, CT abd showed large free air. HD stable, -pt clinically stable with conservative tx, no s/s of peritonitis -appreciate Dr. Jim, recommendation, advance diet today, -continue IVF NS 100cc/hr -pain control for dilaudid prn, -continue zosyn empirically for peritonitis, trend labs, fever curve chronic, stable, etoh abuse, potential for etoh WD, no s/s of WD yet, CIWA protocl ordered, dispo:likely home tomorrow, close observation diet: Liquids dvt ppx: SCD Full code VTE Mechanical Devices: Intermittant Pneumatic CD Yuan Allison MD Apr 10, 2017 10:08
--- NOTE | 2017-04-10 18:48 | NUR ---
Pain Pt stating pain 4/10 consistently throughout shift. Taking Dilaudid 2mg IVP q4h. Comfortable post IVP. Pt up to shower and stated having moved more today than previous days. Pt asking about PO pain medications in anticipation for DC. Cook page to MD for PO pain medication since tolerating soft diet. No response. Continued IVP. NOC RN aware. Care continues.
[2017-04-10 20:29] VITALS: BP 110/73; PULSE 65; RESP 18; O2SAT 93
[2017-04-11] MEDS: Piperacillin-Tazo 3.375 Gm Inj 3.375 GM in Dextrose 5% Minibag Plus 50 ML IV SCH ×2 (01:27→09:20)
[2017-04-11] MEDS: 0.9% Sodium Chloride 1,000 ML IV SCH ×2 (01:27→02:32)
[2017-04-11] MEDS: HYDROmorphone 1 mg/mL Inj IVPUSH PRN (02:01)
--- NOTE | 2017-04-11 03:43 | NUR ---
PAIN; Dilaudid iv given q 4hrs thru the shift for abd pain. Pt awake off and on, quite talkative. Wondering about when he can go back to work, when he will be discharged etc. Moderate liquid dark brown bm x1. = no blood noted in stool.
[2017-04-11 05:03] VITALS: BP 114/75; PULSE 62; RESP 18; O2SAT 94
--- NOTE | 2017-04-11 07:55 | PROG NOTE ---
[address] [address] PROGRESS NOTE PATIENT: RUFUS HINDS : 1960 MR#: [id number] ADMIT: 04/07/2017 JOB ID: [id number] DATE: 04/11/2017 SUBJECTIVE: The patient is seen in followup. He continues to improve. He had some bowel movement yesterday. His pain is minimal. He has been tolerating a full liquid diet. He does have some very mild nausea at times. OBJECTIVE: Temperature 36.6, pulse 62, blood pressure 114/75, saturation 94% on room air. In general, he is resting in bed in no acute distress. Chest is clear. Heart regular rate and rhythm, no murmurs. Abdomen is soft, nondistended. Bowel tones are normal. ASSESSMENT AND PLAN: A 56-year-old man with right colon perforation from colonoscopy, improved with conservative treatment. I do not think he is going to require surgical intervention. I think he can be safely discharged from the hospital today. He should complete one week of antibiotics. 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
[2017-04-11] MEDS: oxyCODONE-Acetamin 5-325 mg Tablet PO PRN ×2 (07:57→12:20)
[2017-04-11 08:00] VITALS: BP 130/81; PULSE 56; RESP 16; O2SAT 95
--- NOTE | 2017-04-11 10:14 | PCM.PNMED ---
Subjective Date of Service Apr 11, 2017 Subjective He has minimal abdominal pain tolerated liquid diet yesterday tolerated regular diet this morning passing flatus small liquid stool yesterday Exam Vital Signs Vital Sign - Last Date Time Temp Pulse Resp B/P Pulse Ox O2 Delivery O2 Flow Rate FiO2 04/11/17 05:03 36.6 62 18 114/75 94 Room Air 04/08/17 05:08 3.00 Intake and Output 04/10/17 04/10/17 04/11/17 Cumulative From/Thru 15:00 23:00 07:00 04/07/17 09:59 - 04/11/17 05:19 Intake Total 1868 ml 1534 ml 93225 ml Output Total 425 ml 2000 ml 5675 ml Balance 1443 ml -466 ml 4926 ml Intake Oral 556 ml 720 ml 3976 ml IV Total 1312 ml 814 ml 6625 ml Output Urine Total 425 ml 2000 ml 5675 ml # Voids 1 8 # Bowel Movements 1 Exam Gen- no apparent distress HEENT- oropharynx clear RESP- clear to auscultation bilaterally CVS-RRR Abdomen- non Tender in RUQ and RLQ, distended but soft, bowel sounds present EXT- no edema Lab and Diagnostics Result Diagram: 04/10/17 0720 04/09/17 0536 X-Rays, CTs and MRIs Caution: Report not yet finalized and possibly incomplete! PROCEDURE: CT ABDOMEN AND PELVIS WITHOUT CONTRAST ([id number]) INDICATIONS: Possible perforation TECHNIQUE: Noncontrast 5 mm thick sections acquired from the diaphragms to the symphysis. 5 mm coronal and sagittal reformats were then performed. For radiation dose reduction, the following was used: automated exposure control, adjustment of mA and/or kV according to patient size. COMPARISON: [facility], MR LUMBAR SPINE WO CON, 02/18/2017, 9:08. FINDINGS: Image quality: Excellent. ABDOMEN: Lung bases: Lung bases are clear. Heart size is normal. Solid organs: There is a 1.2 cm indeterminate hepatic hypodensity. Liver and spleen are normal in size. Gallbladder is normal. Pancreas is normal in contours. No adrenal nodules. Kidneys are normal in size, without hydronephrosis or nephrolithiasis. Peritoneum and bowel: There is a large amount of free peritoneal air consistent with viscus perforation. There is a small amount of air/fluid adjacent to the hepatic flexure, most likely the site of perforation. There are 2 metallic clips are noted along the lateral wall of the ascending colon. Unenhanced bowel loops demonstrate normal wall thickness and caliber. No free fluid. Nodes and vessels: No retroperitoneal or mesenteric adenopathy by size criteria. Aorta and inferior vena cava are normal in caliber. Miscellaneous: No ventral hernias. PELVIS: Genitourinary: Bladder wall thickness is normal. Miscellaneous: No inguinal hernias or adenopathy. Bones: No suspicious bony lesions. No vertebral body compression fractures. IMPRESSION: 1. A large amount of free peritoneal air consistent with viscus perforation. The site of perforation is in the area of the hepatic flexure of colon where there is a small air/fluid collection. 2. Two surgical clips along the lateral wall of the ascending colon. The result was discussed with Dr. Chet zuniga to dictation. Dictated by: Harriet Brunson M.D. on 04/07/2017 at 12:20 Transcribed by: JITENDRA on 04/07/2017 at 12:31 Assessment & Plan Iatrogenic colon perforation -discharge with PO antibiotics for 1 more week, consider levaquin and flagyl -ok to discharge from GI standpoint -follow up in GI clinic in 2-4 weeks VTE Mechanical Devices: Intermittant Pneumatic CD Samuel Rosenberg MD Apr 11, 2017 10:14
[2017-04-11] MEDS ORDERED: LEVO750T9 PO (11:51)
[2017-04-11] MEDS ORDERED: METR500T PO (11:51)
--- NOTE | 2017-04-11 11:54 | PCM.DIMED ---
Discharge Instructions Date of Service Apr 11, 2017 Dates of Hospitalization Apr 07, 2017 at 12:11 Discharge Diagnosis Discharge Diagnosis status post perforated bowel from colonoscopy Medication Instructions Additional med instructions continue Levaquin, Flagyl for 10more days, Take percocet for severe pain every 4-6hours as needed Take stool softner, adjust based on your stools Diet Discharge Diet: Other (small, soft meal) Activity Discharge Activity: No restrictions Call your provider Call your provider for: Fever or Chills, Vomitting, Excessive diarrhea Patient Instructions Patient Instructions You were hospitalized with perforated bowel, complication from colonoscopy. You remained clinically stable, covered with antibiotics for potential risks of infection. Given your stable condition, you are released from the hospital. Please continue antibiotics as directed. Please follow up with your primary doctor in 2weeks. Follow-up Provider: Donta Santiago DO Follow-up with PCP in: 2 weeks Kermit Wilson MD Apr 11, 2017 11:54
[2017-04-11] MEDS ORDERED: DOCU-41 PO (11:55)
[2017-04-11] MEDS ORDERED: POLY17PO6 PO (11:55)
[2017-04-11] MEDS ORDERED: OXYC1TAB24 PO (11:57)
--- NOTE | 2017-04-11 12:01 | PCM.DC.MED ---
Discharge Summary Date of Service Apr 11, 2017 Dates of Hospitalization Date of Hospital Admission Apr 07, 2017 at 12:11 Date of Discharge: Apr 11, 2017 Providers: Admitting Physician: Kermit Crespo MD Primary Care Physician: Donta Santiago DO Attending Physician: Kermit Crespo MD Diagnosis at Time of Discharge Diagnosis at Time of Discharge status post perforated bowel from colonoscopy Consultations Gen. surgery Procedures XRay, CTs & MRIs PROCEDURE: CT ABDOMEN AND PELVIS WITHOUT CONTRAST ([id number]) INDICATIONS: Possible perforation TECHNIQUE: Noncontrast 5 mm thick sections acquired from the diaphragms to the symphysis. 5 mm coronal and sagittal reformats were then performed. For radiation dose reduction, the following was used: automated exposure control, adjustment of mA and/or kV according to patient size. COMPARISON: [facility], MR, MR LUMBAR SPINE WO CON, 02/18/2017, 9:08. FINDINGS: Image quality: Excellent. ABDOMEN: Lung bases: Lung bases are clear. Heart size is normal. Solid organs: There is a 1.2 cm indeterminate hepatic hypodensity. Liver and spleen are normal in size. Gallbladder is normal. Pancreas is normal in contours. No adrenal nodules. Kidneys are normal in size, without hydronephrosis or nephrolithiasis. Peritoneum and bowel: There is a large amount of free peritoneal air consistent with viscus perforation. There is a small amount of air/fluid adjacent to the hepatic flexure, most likely the site of perforation. There are 2 metallic clips are noted along the lateral wall of the ascending colon. Unenhanced bowel loops demonstrate normal wall thickness and caliber. No free fluid. Nodes and vessels: No retroperitoneal or mesenteric adenopathy by size criteria. Aorta and inferior vena cava are normal in caliber. Miscellaneous: No ventral hernias. PELVIS: Genitourinary: Bladder wall thickness is normal. Miscellaneous: No inguinal hernias or adenopathy. Bones: No suspicious bony lesions. No vertebral body compression fractures. IMPRESSION: 1. A large amount of free peritoneal air consistent with viscus perforation. The site of perforation is in the area of the hepatic flexure or asceding colon. 2. Two surgical clips along the lateral wall of the ascending colon. 3. A 1.2 cm indeterminate hepatic hypodensity, probably a cyst. The result was discussed with Dr. Chet zuniga to dictation. Dictated by: Harriet Brunson M.D. on 04/07/2017 at 12:20 Transcribed by: JITENDRA on 04/07/2017 at 12:31 Approved by: Harriet Brunson M.D. on 04/07/2017 at 17:17 PROCEDURE: X-RAY KUB ([id number]) INDICATIONS: colon perforation TECHNIQUE: One view of the abdomen acquired. COMPARISON: [facility], CT, CT ABD PELVIS WO CON, 04/07/2017, 10:24. FINDINGS: Surgical changes and devices: None. Bowel: Bowel gas pattern is normal. Soft tissues: No suspicious abdominal calcifications. Visualized solid organ contours appear normal in size. 3 metallic surgical clips projected over the right lower quadrant. Bones: No suspicious bony lesions. IMPRESSION: 1. Normal bowel gas pattern. Free intraperitoneal gas cannot be excluded by this examination as no upright was performed nor a decubitus film. Dictated by: Rj Hamm [facility] Interpreted: Jacek Arango MD on 04/08/2017 at 11 :19 Approved by: Jacek Arango M.D. on 04/08/2017 at 11:41 Brief History HPI obtained on 56-year-old male with no significant past medical history, chronic etoh abuse, no hx of withdrawal, Fhx of colon cancer presented to endoscopy clinic for elective colonoscopy for screening by . During the procedure, bowel was perforated following polyp removal. Patient was started on zosyn, IVF, kept in NPO. Surgical consult on board. CT abd showed A large amount of free peritoneal air consistent with viscus perforation. The site of perforation is in the area of the hepatic flexure of colon where there is a small air/fluid collection. upon interview, pt c/o coldness, chills, abdominal pain 5/10, diffusely, denied n/v. otherwise pt denied recent F,c, cough, sputum, chest pain, sputum, travel, sick contacts, complaints. functional and active Hospital Course Brief hospital course Patient was admitted with Iatrogenic colon perforation by . CT abdomen showed large free air, abdomen remained benign throughout the hospitalization. Patient was started on Zosyn, remained clinically stable. Pain was controlled. Patient was followed by general surgery, did not require surgical intervention. Patient tolerated diet, follow-up KUB showed normal gas pattern. Plan is to discharge with Levaquin and Flagyl for 1 more week, follow- up in GI clinic in 2-4 weeks and primary doctor in 2 weeks Exam Vital Signs (Last) Date Time Temp Pulse Resp B/P Pulse Ox O2 Delivery O2 Flow Rate FiO2 04/11/17 08:00 36.8 56 16 130/81 95 Room Air 04/08/17 05:08 3.00 Exam NAD, comfortably laying down on the bed no JVD, MMM, no LAD RRR, nl s1, s2 no mrg CTAB, no w,c S,ND,NT,normoactive BS+ warm, no edema, pulses 2/2 Test 04/09/17 05:36 04/10/17 07:20 Neutrophils (%) (Auto) 60.0% (40-74) Lymphocytes (%) (Auto) 29.9% (14-46) Monocytes (%) (Auto) 8.4% (4-12) Eosinophils (%) (Auto) 1.3% (0-5) Basophils (%) (Auto) 0.2% (0-3) Sodium Level 135mEq/L (134-144) Potassium Level 3.9mEq/L (3.5-5.2) Chloride Level 101mEq/L (97-108) Carbon Dioxide Level 22mmol/L (18-29) Blood Urea Nitrogen 8mg/dL (6-24) Creatinine 0.87mg/dL (0.76-1.27) Estimat Glomerular Filtration Rate 97mL/min (>59) Glucose Level 99mg/dL (60-99) Calcium Level 8.3mg/dL (8.5-10.1) Phosphorus Level 2.8mg/dL (2.5-4.9) Magnesium Level 1.9mg/dL (1.6-2.6) Total Bilirubin 0.5mg/dL (0.0-1.2) Aspartate Amino Transf (AST/SGOT) 16U/L (0-50) Alanine Aminotransferase (ALT/SGPT) 17U/L (0-44) Alkaline Phosphatase 53U/L (25-150) Total Protein 6.1g/dL (6.4-8.4) Albumin 3.2g/dL (3.4-5.0) Procalcitonin 0.27ng/mL (0.00-0.08) White Blood Count 8.3th/mm3 (3.8-10.1) Red Blood Count 4.20mil/mm3 (4.40-5.80) Hemoglobin 12.6g/dL (13.8-17.2) Hematocrit 38.4% (41.0-50.0) Mean Corpuscular Volume 91.4fL (81-100) Mean Corpuscular Hemoglobin 30.0pg (27.0-35.0) Mean Corpuscular Hemoglobin Concent 32.8% (32.0-37.0) Red Cell Distribution Width 12.0% (12.3-15.4) Platelet Count 244bil/L (150-400) Discharge Medications Discharge Medications Levofloxacin (Levaquin) 750 Mg Tablet 750 MG PO DAILY Prescribed by: KERMIT CRESPO MD Metronidazole (Flagyl) 500 Mg Tablet 500 MG PO BID Prescribed by: KERMIT CRESPO MD As needed Docusate Sodium (Colace) 100 Mg Capsule 100 MG PO BID PRN PRN For Constipation Prescribed by: KERMIT CRESPO MD Polyethylene Glycol 3350 (Miralax) 17 Gm Powd.pack 17 GM PO BID PRN PRN For Constipation Prescribed by: KERMIT CRESPO MD oxyCODONE-Acetaminophen 5-325 mg (oxyCODONE-Acetaminophen 5-325 mg) 1 Each Tablet 1 TAB PO Q4H PRN PRN For Pain Prescribed by: KERMIT CRESPO MD Additional med instructions continue Levaquin, Flagyl for 10more days, Followup Plan Disposition: home Discharge Diet: Other (small, soft meal) Discharge Activity: No restrictions Patient Instructions You were hospitalized with perforated bowel, complication from colonoscopy. You remained clinically stable, covered with antibiotics for potential risks of infection. Given your stable condition, you are released from the hospital. Please continue antibiotics as directed. Please follow up with your primary doctor in 2weeks. Follow-up Provider: Donta Santiago DO Follow-up with PCP in: 2 weeks Time spent 65min Kermit Crespo MD Apr 11, 2017 11:56
--- NOTE | 2017-04-11 12:28 | NUR ---
Social Work: Readiness for Discharge D: EMR reviewed. Pt is on day 5 of hospitalization. Per MD in AM multi-disciplinary rounds, pt is likely to discharge today. Pt to transport home via POV when medically stable. Per GARY NAIK does not anticipate any discharge needs at this time but will continue to follow if needs arise. A: Pt who is independent at baseline P: Per MD in AM multi-disciplinary rounds, pt is likely to discharge today. Pt to transport home via POV when medically stable. Per GARY NAIK does not anticipate any discharge needs at this time but will continue to follow if needs arise. LARRY Harper
--- NOTE | 2017-04-11 13:45 | NUR ---
DISCHARGE Percocet 1 tab PO has been effective for pain control. Patient rated his pain as 4/10 and patient stated that his pain is better after his pain medication. Patient has been tolerating liquids PO and his diet well. Patient ate 50 % of his lunch. Tolerated it without any problems. Denies nausea. No emesis noted. Denies SOB. Patient has been able to get up and ambulate in the room. Gait is steady. IV saline lock d/cd. Discharge instructions, care notes and prescription was given to the patient and he verbalized understanding. Discharged to home with his and all his personal belongings. (Copy of D/C is in the chart).
== END 2017-04-11 13:29 | disposition home or self-care (01) | DRG 919 ==
LOC: END 08:55 → OSC 12:11 → END 12:11 → UNDOFXSDCRRACCOM 14:00
PROVIDERS: ADMIT Internal Medicine; ATTEND Internal Medicine
PROC: 0DBK8ZZ Excision of Ascending Colon, Via Natural or Artificial Opening Endoscopic (ICD-10-PCS; principal; 2017-04-07 11:15)
PROC: 0W3P8ZZ Control Bleeding in Gastrointestinal Tract, Via Natural or Artificial Opening Endoscopic (ICD-10-PCS; 2017-04-07 11:15)
DX: K91.71 Accidental puncture and laceration of a digestive system organ or structure during a digestive system procedure (principal); K63.1 Perforation of intestine (nontraumatic); Z12.11 Encounter for screening for malignant neoplasm of colon; F10.10 Alcohol abuse, uncomplicated; F12.10 Cannabis abuse, uncomplicated; F17.210 Nicotine dependence, cigarettes, uncomplicated